=== PATIENT | male | born 1950 | race Two or more races ===

== ENCOUNTER 2018-10-08 15:56 | Outpatient (CLI) | payer OTHER | END 2018-10-08 16:47 | disposition home or self-care (01) | LOC: LAB 15:56 | DX: R97.20 Elevated prostate specific antigen [PSA] (principal) ==

== ENCOUNTER → 2018-11-06 | Outpatient (CLI) | payer OTHER | END | disposition home or self-care (01) | LOC: SONOGRAMA 07:52 | DX: R97.20 Elevated prostate specific antigen [PSA] (principal) ==

== ENCOUNTER 2021-09-27 12:54 | Outpatient (CLI) | payer OTHER | END 2021-09-27 12:55 | disposition home or self-care (01) | LOC: LAB 12:54 | PROVIDERS: ATTEND Urology | DX: R97.20 Elevated prostate specific antigen [PSA] (principal) ==

== ENCOUNTER 2021-10-14 07:23 | Outpatient (CLI) | payer OTHER | END 2021-10-14 07:28 | disposition home or self-care (01) | LOC: SONOGRAMA 07:23 | PROVIDERS: ATTEND Urology | DX: R97.20 Elevated prostate specific antigen [PSA] (principal) ==